=== PATIENT | female | born 1970 ===

== ENCOUNTER 2017-03-22 14:43 | Emergency (ER) | payer OTHER ==
[2017-03-22 15:00] VITALS: BMI 34.7
[2017-03-22 15:01] VITALS: TEMP 98.3
[2017-03-22] MEDS ORDERED: DiphenhydrAMINE 50 mg/ml Inj IVP STA (15:22)
[2017-03-22] MEDS ORDERED: Sodium Chloride 0.9% 500 ML IV STA (15:22)
--- NOTE | 2017-03-22 15:26 | ED PDOC ---
Arrival/HPI - General Chief Complaint: Dizziness/Lightheaded Time Seen by Provider: 03/22/17 15:04 Historian: Patient - History of Present Illness Narrative History of Present Illness (Text): 03/22/17 15:23 A 46 year old female, whose past medical history includes migraines, presents to the emergency department complaining of a headache since last night. Patient notes nausea and lightheadedness this morning. Patient describes her headache as a pounding sensation, similar to prior migraines. Patient denies any blurry vision, fever nausea, vomiting, diarrhea, abdominal pain, urinary symptoms, chest pain, shortness of breath or any other complaints. PMD: Dr. Christina Time/Duration: Other (last night) Symptom Course: Unchanged Quality: Other Context: Home, Work Past Medical History - Provider Review Nursing Documentation Reviewed: Yes - Infectious Disease Hx of Infectious Diseases: None - Tetanus Immunization Tetanus Immunization: Unknown - Cardiac Hx Cardiac Disorders: Yes Hx Hypertension: Yes - Pulmonary Hx Respiratory Disorders: No - Neurological Hx Neurological Disorder: Yes Hx Migraine: Yes - HEENT Hx HEENT Disorder: No - Renal Hx Renal Disorder: No - Endocrine/Metabolic Hx Endocrine Disorders: No - Hematological/Oncological Hx Blood Disorders: No - Integumentary Hx Dermatological Disorder: No - Musculoskeletal/Rheumatological Hx Musculoskeletal Disorders: Yes Other/Comment: FIBROMYALGIA - Gastrointestinal Hx Gastrointestinal Disorders: No - Genitourinary/Gynecological Hx Genitourinary Disorders: No - Psychiatric Hx Psychophysiologic Disorder: Yes Hx Depression: No Hx Emotional Abuse: No Hx Physical Abuse: No Hx Substance Use: No Other/Comment: OCD - Surgical History Hx Section: Yes Hx Cholecystectomy: Yes - Suicidal Assessment Feels Threatened In Home Enviroment: No Family/Social History - Physician Review Nursing Documentation Reviewed: Yes Family/Social History: No Known Family HX Smoking Status: Never Smoked Hx Alcohol Use: No Hx Substance Use: No Hx Substance Use Treatment: No Allergies/Home Meds Allergies/Adverse Reactions: Allergies No Known Allergies Allergy (Verified 03/22/17 14:55) Home Medications: Home Meds Medication Instructions Recorded Confirmed Fluoxetine HCl [Prozac] 40 mg PO DAILY 08/28/14 03/22/17 Azilsartan Medoxomil [Edarbi] 40 mg PO DAILY 03/22/17 03/22/17 Ergocalciferol (Vitamin D2) 0 unit PO DAILY 03/22/17 03/22/17 [Vitamin D] Folic Acid [Folic Acid] 1 mg PO DAILY 03/22/17 03/22/17 Review of Systems - Physician Review All systems were reviewed & negative as marked: Yes - Review of Systems Constitutional: absent: Fevers, Night Sweats Eyes: absent: Vision Changes Respiratory: absent: SOB Cardiovascular: absent: Chest Pain Gastrointestinal: absent: Abdominal Pain, Diarrhea, Nausea, Vomiting Genitourinary Female: absent: Dysuria, Frequency, Hematuria, Urine Output Changes Neurological: Headache, Other (Lightheadedness) Physical Exam Vital Signs Reviewed: Yes Vital Signs Temp Pulse Resp BP Pulse Ox 03/22/17 17:44 70 18 147/85 97 03/22/17 15:22 75 133/76 98 03/22/17 15:01 98.3 F 72 16 159/90 H 98 Temperature: Afebrile Blood Pressure: Hypertensive Pulse: Regular Respiratory Rate: Normal Appearance: Positive for: Well-Appearing, Non-Toxic, Comfortable Pain Distress: None Mental Status: Positive for: Alert and Oriented X 3 - Systems Exam Head: Present: Atraumatic, Normocephalic Pupils: Present: PERRL Extroacular Muscles: Present: EOMI Conjunctiva: Present: Normal Mouth: Present: Moist Mucous Membranes Neck: Present: Normal Range of Motion. No: Bruit Respiratory/Chest: Present: Clear to Auscultation, Good Air Exchange. No: Respiratory Distress, Accessory Muscle Use Cardiovascular: Present: Regular Rate and Rhythm, Normal S1, S2. No: Murmurs Upper Extremity: Present: Normal Inspection. No: Cyanosis, Edema Lower Extremity: Present: Normal Inspection, NORMAL PULSES. No: Edema, CALF TENDERNESS Neurological: Present: GCS=15, CN II-XII Intact, Speech Normal, Motor Func Grossly Intact, Normal Sensory Function, Normal Cerebellar Funct, Gait Normal, Memory Normal Skin: Present: Warm, Dry, Normal Color. No: Rashes Psychiatric: Present: Alert, Oriented x 3, Normal Insight, Normal Concentration Medical Decision Making ED Course and Treatment: 03/22/17 15:23 Impression: A 46 year old female with a headache. Patient notes nausea and lightheadedness. Normal neuro exam. Differential Diagnosis included but are not limited to: Migraine vs. Tension headache vs. Dehydration Plan: -- EKG -- Labs -- Urinalysis -- Benadryl, Toradol, Reglan and IV fluids -- Reassess and disposition Progress Notes: 03/22/17 16:13 EKG shows NSR at 74 BPM with t-wave inversions in lead III. Interpreted by me. 03/22/17 18:12 Patient feels much better. No longer has symptoms. Will discharge home with PMD f.u. - Lab Interpretations Lab Results: 03/22/17 16:24 03/22/17 15:45 Lab Results 03/22/17 16:30: Urine Color Yellow, Urine Appearance Sl cloudy, Urine pH 6.0, Ur Specific [place] >= 1.030, Urine Protein Negative, Urine Glucose (UA) Negative, Urine Ketones Negative, Urine Blood Small H, Urine Nitrate Negative, Urine Bilirubin Negative, Urine Urobilinogen 0.2, Ur Leukocyte Esterase Negative , Urine RBC Pending, Urine WBC Pending 03/22/17 16:24: WBC 9.8, RBC 4.07, Hgb 11.9 L, Hct 35.3 L, MCV 86.7, MCH 29.2, MCHC 33.7, RDW 13.5, Plt Count 273, MPV 9.7, Gran % 70.0 H, Lymph % (Auto) 22.1 , Ida % (Auto) 5.9, Eos % (Auto) 1.6, Baso % (Auto) 0.4, Gran # 6.82 H, Lymph # 2.2, Ida # 0.6, Eos # 0.2, Baso # 0.04 03/22/17 15:45: Sodium 138, Potassium 4.2, Chloride 104, Carbon Dioxide 27, Anion Gap 11, BUN 11, Creatinine 0.7, Est GFR ( Amer) > 60, Est GFR (Non- Af Amer) > 60, Random Glucose 99, Calcium 9.3, Magnesium 1.8, Total Bilirubin 0.4, AST 44 H, ALT 37, Alkaline Phosphatase 111, Total Protein 7.9, Albumin 3.9 , Globulin 4.0, Albumin/Globulin Ratio 1.0 L I have reviewed the lab results: Yes - Medication Orders Current Medication Orders: Discontinued Medications Diphenhydramine HCl (Benadryl) 50 mg IVP STAT STA Stop: 03/22/17 15:23 Last Admin: 03/22/17 16:05 Dose: 50 mg Sodium Chloride (Sodium Chloride 0.9%) 500 mls @ 999 mls/hr IV .Q31M STA Stop: 03/22/17 15:52 Last Admin: 03/22/17 16:06 Dose: 999 mls/hr Ketorolac Tromethamine (Toradol) 30 mg IVP STAT STA Stop: 03/22/17 15:22 Last Admin: 03/22/17 16:05 Dose: 30 mg Metoclopramide HCl (Reglan) 10 mg IVP STAT STA Stop: 03/22/17 15:22 Last Admin: 03/22/17 16:05 Dose: 10 mg - Scribe Statement The provider has reviewed the documentation as recorded by the Negin Garcia Provider Scribe Attestation: All medical record entries made by the Scribe were at my direction and personally dictated by me. I have reviewed the chart and agree that the record accurately reflects my personal performance of the history, physical exam, medical decision making, and the department course for this patient. I have also personally directed, reviewed, and agree with the discharge instructions and disposition. Disposition/Present on Arrival - Present on Arrival Any Indicators Present on Arrival: No History of DVT/PE: No History of Uncontrolled Diabetes: No Urinary Catheter: No History of Decub. Ulcer: No History Surgical Site Infection Following: None - Disposition Have Diagnosis and Disposition been Completed?: Yes Diagnosis: Headache Disposition: HOME/ ROUTINE Disposition Time: 18:12 Patient Plan: Discharge Patient Problems: Current Active Problems Problem Status Onset Headache Acute Condition: IMPROVED Discharge Instructions (ExitCare): Acute Headache (DC), Lightheadedness (ED) Additional Instructions: Tevin, thank you for letting us take care of you today. Your provider was Dr. Dickson. You were treated for Headache, Lightheadedness. The emergency medical care you received today was directed at your acute symptoms. If you were prescribed any medication, please fill it and take as directed. It may take several days for your symptoms to resolve. Return to the Emergency Department if your symptoms worsen, do not improve, or if you have any other problems. Please contact your doctor or call one of the physicians/clinics you have been referred to that are listed on the Patient Visit Information form that is included in your discharge packet. Bring any paperwork you were given at discharge with you along with any medications you are taking to your follow up visit. Our treatment cannot replace ongoing medical care by a primary care provider (PCP) outside of the emergency department. Thank you for allowing the [facility] team to be part of your care today. If you had an X-Ray or CT scan: A Radiologist will review the ED reading if any change in treatment is needed we will contact you. If you had a blood, urine, or wound culture: It will take several days for the results, if any change in treatment is needed we will contact you. If you had an STI test: It will take 48 hours for the results. Please call after 1 week if you have not heard back. Prescriptions: Naproxen 500 mg PO BID PRN #30 tab PRN Reason: Pain, Moderate (4-7) Referrals: Wander Christina MD [Primary Care Provider] - Follow up with primary Forms: [employer] ([place]ian), WORK NOTE
[2017-03-22 16:20] LABS: ALKALINE PHOSPHATASE 111 U/L (38-133); ALT/SGPT 37 U/L (7-56); AST/SGOT 44 U/L (15-39); BILIRUBIN,TOTAL 0.4 mg/dL (0.2-1.3); BLOOD UREA NITROGEN 11 mg/dL (7-21); CALCIUM 9.3 mg/dL (8.4-10.5); CARBON DIOXIDE 27 mmol/L (21-33); CHLORIDE 104 mmol/L (98-107); GFR AFRICAN-AMERICAN > 60; GLUCOSE,RANDOM 99 mg/dL (70-110); MAGNESIUM 1.8 mg/dL (1.7-2.2); POTASSIUM 4.2 mmol/L (3.6-5.0); SODIUM 138 mmol/L (132-148); TOTAL PROTEIN 7.9 g/dL (5.8-8.3)
[2017-03-22 16:38] LABS: ADD MANUAL DIFF? NO
[2017-03-22 16:52] LABS: BASO # 0.04 K/mm3 (0.0-2.0); BASO % 0.4 % (0.0-3.0); EOS # 0.2 (0.0-0.7); EOS % 1.6 % (1.5-5.0); GRAN # 6.82 (1.4-6.5); HEMATOCRIT 35.3 % (36.0-48.0); LYMPH # 2.2 (1.2-3.4); LYMPH % 22.1 % (22.0-35.0); MEAN CELL VOLUME 86.7 fL (80.0-105.0); MEAN CORPUSCULAR HEMOGLOBIN 29.2 pg (25.0-35.0); MEAN CORPUSCULAR HGB CONC 33.7 g/dl (31.0-37.0); MEAN PLATELET VOLUME 9.7 fl (7.0-11.0); MONO # 0.6 (0.1-0.6); MONO % 5.9 % (1.0-6.0); PLATELET COUNT 273 10^3/uL (120.0-450.0); RED CELL DISTRIBUTION WIDTH 13.5 % (11.5-14.5); WHITE BLOOD COUNT 9.8 10^3/ul (4.5-11.0)
[2017-03-22 17:39] LABS: URINE BILIRUBIN NEGATIVE (NEGATIVE); URINE BLOOD SMALL (NEGATIVE); URINE GLUCOSE (UA) NEGATIVE (NEGATIVE); URINE KETONE NEGATIVE (NEGATIVE); URINE LEUKOCYTE ESTERASE NEGATIVE Leu/uL (NEGATIVE); URINE PROTEIN NEGATIVE mg/dL (<30 mg/dL); URINE UROBILINOGEN 0.2 E.U./dL (<1 E.U./dL)
[2017-03-22 17:44] LABS: URINE APPEARANCE SL CLOUDY (CLEAR); URINE COLOR YELLOW (YELLOW)
[2017-03-22 18:35] VITALS: BP 136/81; PULSE 80; RESP 14; O2SAT 99
[2017-03-22 18:44] LABS: URINE BACTERIA MOD (NEG)
--- NOTE | 2017-03-22 20:16 | CARD ---
APPROVED REPORT EKG Measurement Heart [id number] <Conclusion> Normal sinus rhythm Normal ECG
== END 2017-03-22 18:34 | disposition home or self-care (01) ==
LOC: ED 14:43
DX: R51 Headache (principal); I10 Essential (primary) hypertension
CPT/HCPCS: 80053; 81001; 82948; 83735; 85025; 87086; 93005; 96374; 96375; 99285; J1200; J1885; J2765; J7040

== ENCOUNTER 2017-07-27 12:55 | Emergency (ER) | payer OTHER ==
[2017-07-27 13:05] VITALS: TEMP 98.2
--- NOTE | 2017-07-27 13:13 | ED PDOC ---
Arrival/HPI - General Historian: Patient - History of Present Illness Time/Duration: Other (1 day) Symptom Onset: Sudden Symptom Course: Unchanged Quality: Aching, Throbbing Severity Level: 5 <Karina Cabrera - Last Filed: 07/27/17 14:25> <Raymond Tucker - Last Filed: 07/27/17 14:44> - General Chief Complaint: Trauma Time Seen by Provider: 07/27/17 13:09 - History of Present Illness Narrative History of Present Illness (Text): 07/27/17 13:11 47yr old female presents today with headache s/p head injury. Patient states yesterday she was going to get into her car and hit her head on the roof of the car. Patient at that time denied loss of consciousness. She states she had a slight headache at the time. Patient states that she woke up this morning she had a headache and felt dizzy and vomited once. Patient states she called her primary care physician and he advised her to come to the emergency room for evaluation of her head injury. patient denies photophobia. Patient complaining of headache states she took Advil without improvement in her symptoms. Patient states she still feels a little nauseous but has not vomited recently. Denies neck or back pain. Denies blurred vision. Patient denies use of blood thinners. No other complaints (Karina Cabrera) Past Medical History - Provider Review Nursing Documentation Reviewed: Yes - Travel History Have you recently traveled outside [place] w/in the past 3 mons?: No - Infectious Disease Hx of Infectious Diseases: None - Tetanus Immunization Tetanus Immunization: Unknown - Cardiac Hx Cardiac Disorders: No - Pulmonary Hx Respiratory Disorders: No - Neurological Hx Neurological Disorder: Yes Hx Migraine: Yes - HEENT Hx HEENT Disorder: No - Renal Hx Renal Disorder: No - Endocrine/Metabolic Hx Endocrine Disorders: No - Hematological/Oncological Hx Blood Disorders: No - Integumentary Hx Dermatological Disorder: No - Musculoskeletal/Rheumatological Hx Musculoskeletal Disorders: Yes Other/Comment: FIBROMYALGIA - Gastrointestinal Hx Gastrointestinal Disorders: No - Genitourinary/Gynecological Hx Genitourinary Disorders: No - Psychiatric Hx Psychophysiologic Disorder: Yes Hx Depression: No Hx Emotional Abuse: No Hx Physical Abuse: No Hx Substance Use: No Other/Comment: OCD - Surgical History Hx Section: Yes Hx Cholecystectomy: Yes - Suicidal Assessment Feels Threatened In Home Enviroment: No <Karina Cabrera - Last Filed: 07/27/17 14:25> Family/Social History - Physician Review Nursing Documentation Reviewed: Yes Family/Social History: Unknown Family HX Smoking Status: Never Smoked Hx Alcohol Use: No Hx Substance Use: No Hx Substance Use Treatment: No <Karian Cabrera - Last Filed: 07/27/17 14:25> Allergies/Home Meds <Karina Cabrera - Last Filed: 07/27/17 14:25> <Raymond Tucker - Last Filed: 07/27/17 14:44> Allergies/Adverse Reactions: Allergies No Known Allergies Allergy (Verified 07/27/17 13:22) Home Medications: Home Meds Medication Instructions Recorded Confirmed Azilsartan Medoxomil [Edarbi] 40 mg PO DAILY 03/22/17 07/27/17 Review of Systems - Review of Systems Constitutional: absent: Fatigue, Fevers Eyes: absent: Vision Changes, Photophobia, Eye Pain Respiratory: absent: SOB, Cough Cardiovascular: absent: Chest Pain, Palpitations Gastrointestinal: Nausea, Vomiting. absent: Abdominal Pain, Diarrhea Musculoskeletal: absent: Arthralgias, Back Pain, Neck Pain Skin: absent: Rash, Laceration Neurological: Headache, Dizziness Psychiatric: absent: Anxiety, Depression <Karina Cabrera - Last Filed: 07/27/17 14:25> Physical Exam Vital Signs Reviewed: Yes Temperature: Afebrile Blood Pressure: Normal Pulse: Regular Respiratory Rate: Normal Appearance: Positive for: Well-Appearing, Non-Toxic, Comfortable Pain Distress: None Mental Status: Positive for: Alert and Oriented X 3 - Systems Exam Head: Present: Tenderness, Other (no step offs or crepitus). No: Contusion, Ecchymosis, Abrasion, Laceration Pupils: Present: PERRL Extroacular Muscles: Present: EOMI Conjunctiva: Present: Normal Ears: Present: Normal, NORMAL TM Mouth: Present: Moist Mucous Membranes Neck: Present: Normal Range of Motion. No: MIDLINE TENDERNESS, Paraspinal Tenderness Respiratory/Chest: Present: Clear to Auscultation Cardiovascular: Present: Regular Rate and Rhythm Upper Extremity: Present: Normal ROM Lower Extremity: Present: Normal ROM Neurological: Present: GCS=15, Speech Normal, Motor Func Grossly Intact, Normal Sensory Function, Normal Cerebellar Funct, Gait Normal Skin: Present: Warm, Dry, Normal Color. No: Rashes Psychiatric: Present: Alert, Oriented x 3 <Karina Cabrera - Last Filed: 07/27/17 14:25> Vital Signs Temp Pulse Resp BP Pulse Ox 07/27/17 13:05 98.2 F 86 18 159/97 H 99 Medical Decision Making <Karina Cabrera - Last Filed: 07/27/17 14:25> <Raymond Tucker - Last Filed: 07/27/17 14:44> ED Course and Treatment: 07/27/17 13:15 47yr old female presents today with headache and dizziness s/p head injury yesterday. CT head: FINDINGS: HEMORRHAGE: No intracranial hemorrhage. BRAIN: No mass effect or edema. No atrophy or chronic microvascular ischemic changes. VENTRICLES: Unremarkable. No hydrocephalus. CALVARIUM: Unremarkable. PARANASAL SINUSES: Unremarkable as visualized. No significant inflammatory changes. MASTOID AIR CELLS: Unremarkable as visualized. No inflammatory changes. OTHER FINDINGS: None. IMPRESSION: No acute intracranial hemorrhage. Unremarkable examination. 07/27/17 14:14 pt non toxic well appearing; no distress. ambulating with steady gait. toradol given for pain meclizine given for dizziness discussed all results in depth with patient and advised f/u with PMD. advised immediate return if symptoms worsen,persist or if new symptoms develop. advised f/u with neurologist. impression: head injury, headache tylenol every 4 hours as needed for pain follow up with the primary care physician within the next 2 days follow up with the Neurologist within the next 2 days. return immediately if symptoms worsen,persist or if new symptoms develop. (Karina Cabrera) - RAD Interpretation Radiology Orders: 07/27/17 13:24 HEAD W/O CONTRAST [CT] Stat - Medication Orders Current Medication Orders: Discontinued Medications Ketorolac Tromethamine (Toradol) 60 mg IM STAT STA Stop: 07/27/17 14:21 Last Admin: 07/27/17 14:35 Dose: 60 mg MAR Pain Assessment Document 07/27/17 14:35 IT (Rec: 07/27/17 14:35 IT [id number]) Pain Reassessment Is this a pain reassessment? No Sleep Is patient sleeping during reassessment? No Presence of Pain Presence of Pain Yes Pain Scale Used Pain Scale Used Numeric Location Left, Right or Bilateral Left Upper or Lower Upper Pain Location Body Site Occipital Description Description Intermittent Intensity of Pain at present 6 IM Administration Charges Document 07/27/17 14:35 IT (Rec: 07/27/17 14:35 IT [id number]) Injection Site MAR Injection Site Left Deltoid Charges for Administration # of IM Administrations 1 Meclizine HCl (Antivert) 25 mg PO STAT STA Stop: 07/27/17 14:26 Last Admin: 07/27/17 14:41 Dose: 25 mg - PA / MEDICAL RECORDS ASSISTANT / Resident Statement MD/DO has examined the patient and agrees with the treatment plan. <Raymond Tucker - Last Filed: 07/27/17 14:44> Disposition/Present on Arrival - Present on Arrival Any Indicators Present on Arrival: No History of DVT/PE: No History of Uncontrolled Diabetes: No Urinary Catheter: No History Surgical Site Infection Following: None - Disposition Have Diagnosis and Disposition been Completed?: Yes Disposition Time: 14:16 Patient Plan: Discharge <Karina Cabrera - Last Filed: 07/27/17 14:25> <Raymond Tucker - Last Filed: 07/27/17 14:44> - Disposition Diagnosis: Head injury, Headache Disposition: HOME/ ROUTINE Patient Problems: Current Active Problems Problem Status Onset Head injury Acute Headache Acute Condition: GOOD Discharge Instructions (ExitCare): Concussion (ED), Head Injury (ED) Additional Instructions: tylenol every 4 hours as needed for pain follow up with the primary care physician within the next 2 days follow up with the Neurologist within the next 2 days. return immediately if symptoms worsen,persist or if new symptoms develop. Prescriptions: Meclizine [Meclizine*] 25 mg PO Q6 PRN #10 tab PRN Reason: Dizziness Referrals: Wander Christina MD [Primary Care Provider] - Follow up with primary Maxwell Payne MD [Staff Provider] - Follow up with primary Forms: [employer] ([place]ic), WORK NOTE
[2017-07-27 13:18] VITALS: BMI 35.2
--- NOTE | 2017-07-27 13:56 | CT ---
PROCEDURE: CT HEAD WITHOUT CONTRAST. HISTORY: headache/dizziness s/p head injury COMPARISON: 08/28/2014 TECHNIQUE: Axial computed tomography images were obtained through the head/brain without intravenous contrast. Radiation dose: Total exam DLP = 677.45 mGy-cm. This CT exam was performed using one or more of the following dose reduction techniques: Automated exposure control, adjustment of the mA and/or kV according to patient size, and/or use of iterative reconstruction technique. FINDINGS: HEMORRHAGE: No intracranial hemorrhage. BRAIN: No mass effect or edema. No atrophy or chronic microvascular ischemic changes. VENTRICLES: Unremarkable. No hydrocephalus. CALVARIUM: Unremarkable. PARANASAL SINUSES: Unremarkable as visualized. No significant inflammatory changes. MASTOID AIR CELLS: Unremarkable as visualized. No inflammatory changes. OTHER FINDINGS: None. IMPRESSION: No acute intracranial hemorrhage. Unremarkable examination.
[2017-07-27 14:54] VITALS: BP 152/75; PULSE 85; RESP 17; O2SAT 98
== END 2017-07-27 14:55 | disposition home or self-care (01) ==
LOC: ED 12:55
DX: S09.90XA Unspecified injury of head, initial encounter (principal); W22.8XXA Striking against or struck by other objects, initial encounter; Y93.89 Activity, other specified; Y92.89 Other specified places as the place of occurrence of the external cause
CPT/HCPCS: 70450; 96372; 99284; J1885

== ENCOUNTER 2019-02-27 16:11 | Outpatient (CLI) | payer OTHER | END 2019-02-27 16:12 | disposition home or self-care (01) | LOC: RAD 16:11 ==

== ENCOUNTER 2019-03-14 14:19 | Outpatient (CLI) | payer OTHER | END 2019-03-14 14:20 | disposition home or self-care (01) | LOC: LAB 14:19 ==